=== PATIENT | female | born 1935 | race Caucasian/White ===

== ENCOUNTER 2020-05-18 08:45 | Outpatient (CLI) | payer MEDICARE | END 2020-05-18 08:46 | disposition home or self-care (01) | LOC: CSHMAMMO 08:45 | PROVIDERS: ATTEND Internal Medicine | DX: Z12.31 Encounter for screening mammogram for malignant neoplasm of breast (principal) | CPT/HCPCS: 77063; 77067 ==

== ENCOUNTER 2022-09-22 14:04 | Emergency (ER) | payer MEDICARE ==
[~2022-09-22 14:04] MED LIST: Iopamidol 300 61% 100 ML VIAL FS ONE
[2022-09-22] MEDS ORDERED: Ondansetron PF 4 MG/2 ML Vial ONE (15:08)
[2022-09-22] MEDS ORDERED: Cefepime 2 GM VIAL ONE (15:09)
[2022-09-22] MEDS ORDERED: Vancomycin 1 GM VIAL ONE (15:09)
[2022-09-22 15:20] LABS: #Basophils 0.1 10x3/uL (0.0-0.2); #Eosinphils 0.1 10x3/uL (0.0-0.5); %Basophils 0.4 % (0.0-2.0); %Eosinophils 0.7 % (0.0-6.0); %Lymphocytes 2.4 % (18.0-47.0); %Monocytes 7.5 % (0.0-10.0); %Neutrophils 88.7 % (40.0-75.0); Hematocrit 46.9 % (34.9-44.5); Hemoglobin 15.2 g/dL (12.0-15.5); Mean Corpuscular HGB CONC 32.4 g/dL (32.0-36.0); Mean Corpuscular Hemoglobin 29.5 pg (27.0-33.0); Mean Corpuscular Volume 91.1 fl (81.6-98.3); Mean Platelet Volume 10.4 fl (7.4-10.4); Platelet Count 242 10x3/uL (150-450); RBC Distribution Width 13.8 % (11.5-14.5); Red Blood Cell (RBC) Count 5.15 10x6/uL (3.90-5.03); White Blood Cell (WBC) Count 13.5 10x3/uL (3.5-10.5)
[2022-09-22 15:33] LABS: ALT (SGPT) 18 U/L (8-55); AST (SGOT) 20 U/L (5-34); Albumin 4.5 g/dL (3.4-4.8); Alkaline Phosphatase 81 U/L (40-110); Anion Gap 15 mmol/L (10-20); BUN (Urea Nitrogen) 21 mg/dL (9.8-20.1); Bilirubin, Total 0.6 mg/dL (0.2-1.2); Calc. Creatinine Clearance 0 mL/min (70-130); Calcium 9.5 mg/dL (7.8-10.44); Carbon Dioxide 21 mmol/L (23-31); Chloride 111 mmol/L (98-107); Estimated GFR 34; Globulin 2.9 g/dL (2.4-3.5); Glucose 135 mg/dL (83-110); Lipase 35 U/L (8-78); Potassium 3.8 mmol/L (3.5-5.1); Protein, Total 7.4 g/dL (5.8-8.1); Sodium 143 mmol/L (136-145)
[2022-09-22] MEDS ORDERED: Acetaminophen 500 MG TAB ONE (16:26)
== END 2022-09-22 18:15 | disposition home or self-care (01) ==
LOC: CSHERS 14:04
DX: R19.7 Diarrhea, unspecified (principal)
CPT/HCPCS: 36415; 51701; 74177; 80053; 83605; 83690; 85025; 87040; 87077; 87086; 87149; 87186; 93005; 93010; 96365; 96367; 96375; J0692; J2405; J3370; Q9967

== ENCOUNTER 2022-09-28 10:02 | Outpatient (CLI) | payer MEDICARE | END 2022-09-28 10:03 | disposition home or self-care (01) | LOC: CSHMAMMO 10:02 | PROVIDERS: ATTEND Internal Medicine | DX: Z12.31 Encounter for screening mammogram for malignant neoplasm of breast (principal) | CPT/HCPCS: 77063; 77067 ==